=== PATIENT | male | born 1945 | race Caucasian/White ===

== ENCOUNTER 2018-06-21 05:39 | Day surgery (SDC) | payer OTHER ==
[~2018-06-21] VITALS: Ht 180.3 cm; Wt 104.3 kg
--- NOTE | ~2018-06-21 | O ---
[facility] [place] [address] OPERATIVE REPORT Name: ANA PAULA DEL ROSARIO Room #: 150-11 [facility] M.R.#: [id number] Admission: 06/21/18 Attend Phys: Sigifredo Sousa Discharge: Date of : 41 Report #: [id number] THIS REPORT FOR: //name// CC: Sigifredo Mccormack DATE OF SERVICE: 06/21/2018 PREOPERATIVE DIAGNOSES: Left knee pain, effusion, medial meniscus tear, chondromalacia. 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 PROCEDURE PERFORMED: Left knee arthroscopy, partial medial meniscectomy, tricompartmental chondroplasty. SURGEON: Sigifredo Iniguez MD SHOP TEACHER: Gill Abraham PA-C. ANESTHESIA: General per LMA. FLUIDS: Approximately 400 mL crystalloid. TOURNIQUET TIME: Approximately 14 minutes. ESTIMATED BLOOD LOSS: Negligible. DESCRIPTION OF PROCEDURE: After proper identification of the patient and operative site in preoperative holding area, the operative site was signed by myself. Prophylactic antibiotics given. The patient elected to receive a general anesthetic. After being brought back to the operative suite, anesthesia induced, a general anesthetic satisfactorily. LMA was utilized. The patient's left knee was examined. A mild effusion was noted. It was ligamentously stable throughout a full arc of motion comparable to the preoperative assessment. Tourniquet was applied to the upper thigh. The limb was placed in an arthroscopic leg chapin and sterilely prepped and draped in usual manner. The limb was elevated and exsanguinated with an Esmarch. Tourniquet was inflated to 300 mmHg. A superior medial portal was created for inflow purposes. Joint was inflated by gravity inflow with normal saline. An anterolateral and then an anteromedial portal were created using a spinal needle for localization. Examination of the suprapatellar pouch, medial and lateral gutters revealed some mild synovitis, no loose bodies were noted. Grade 3 chondromalacia was noted about the patellofemoral joint, with the more central and lateral aspect of the [facility] [address] [place] [address] OPERATIVE REPORT Name: ANA PAULA DEL ROSARIO Room #: 150-11 [facility]..#: [id number] Admission: 06/21/18 Attend Phys: Sigifredo Sousa Discharge: Date of : 41 Report #: [id number] trochlea demonstrating more wear. More grade 2 chondral changes were noted on the undersurface of the patella, both the medial and lateral patellar facets. Medial compartment of the knee demonstrated some chondral thinning of the medial femoral condyle that started in near full extension to 90 degrees of flexion. This was probably around 50% chondral thinning. Loose chondral flaps and fibrillated tissue were carefully debrided. Grade 2 fibrillation was noted on the medial tibial plateau, were noted posteriorly. A complex tear of the posterior horn of the medial meniscus was debrided with combination of hand and motorized instrumentation back to a stable peripheral rim. Anterior and posterior cruciate ligaments are intact on stable probing. Lateral compartment of the knee demonstrated some mild inner margin fraying of the lateral meniscus with some diffuse grade 2 fibrillation and fraying noted of the lateral tibial plateau. This area was carefully debrided with motorized shaver. Knee was thoroughly irrigated with normal saline. Portals closed with simple nylon stitch. A 20 mL of 0.2% Naropin was injected around the skin incisions and into the knee joint to aid in postoperative pain control. Sterile compressive dressing was applied. The patient was awakened and transferred to the recovery room in stable condition. By: 0824 0845 Sigifredo Iniguez MD /melody
[~2018-06-21 05:39] MED LIST: GLUCOPHAGE1000 MG PO; GLUCOTROL5 MG PO; ZOCOR20 MG PO
[2018-06-21 08:33] VITALS: BP 124/68
[2018-06-21 08:36] VITALS: BP 124/68
--- NOTE | 2018-06-21 08:53 | EKG ---
[address] [address] ELECTROCARDIOGRAM REPORT Name: ANA PAULA DEL ROSARIO [facility]: 150[facility]11 [facility] [id number] Admission: 06/21/18 Attend Phys: Sigifredo Sousa Discharge: Date of : 41 Report #: [id number] THIS REPORT FOR: //name// [facility] Test Date: 2018-06-21 Test Time: 06:34:44 Pat Name: ANA PAULA DEL ROSARIO Department: Room: 150 11 Gender: M [employer] Supervisor: PATIENCE : 1945 Requested By: Sigifredo Iniguez Order Number: [id number] MD: Alvin Tatum Measurements Intervals [place] Rate: 60 P: 31 CA: 162 QRS: -33 QRSD: 98 T: 2 QT: 413 QTc: 413 Interpretive Statements Sinus rhythm Left axis deviation No previous ECG available for comparison Electronically Signed On 06-21-2018 8:53:01 [employer] by Alvin Tatum [email or web address] <ELECTRONICALLY SIGNED> By: Alvin Tatum MD, [facility] 06/21/18 0853 0634 0634 Alvin Tatum MD, FACC /EPI
== END 2018-06-21 09:29 | disposition home or self-care (01) ==
LOC: OR 05:39 → TBA 05:39 → OR 09:29
DX: S83.232A Complex tear of medial meniscus, current injury, left knee, initial encounter (principal); M94.262 Chondromalacia, left knee; E11.9 Type 2 diabetes mellitus without complications; E78.5 Hyperlipidemia, unspecified; Z90.49 Acquired absence of other specified parts of digestive tract; Z98.52 Vasectomy status; Z98.41 Cataract extraction status, right eye; Z98.42 Cataract extraction status, left eye; Z98.890 Other specified postprocedural states; Z79.899 Other long term (current) drug therapy; X58.XXXA Exposure to other specified factors, initial encounter; Y93.89 Activity, other specified; Y92.89 Other specified places as the place of occurrence of the external cause; Y99.8 Other external cause status
CPT/HCPCS: 50010; 50101; 57103; 70005